=== PATIENT | female | born 1960 | race Hispanic/Latino ===

== ENCOUNTER → 2020-05-18 | Emergency (ER) | payer OTHER ==
[~2020-05-18] VITALS: Ht 157.5 cm; Wt 73.5 kg
[~2020-05-18] MED LIST: KEFLEX500 MG PO; LOSARTAN POTASS25 MG PO; NAPROSYN500 MG PO; ZOFRAN4 MG PO
== END ==
LOC: ED 17:51
DX: N39.0 Urinary tract infection, site not specified (principal); I10 Essential (primary) hypertension; Z79.899 Other long term (current) drug therapy
CPT/HCPCS: 81001; 99284

== ENCOUNTER 2020-11-18 20:40 | Emergency (ER) | payer OTHER ==
[~2020-11-18] VITALS: Ht 157.5 cm; Wt 79.8 kg
[2020-11-18] MEDS ORDERED: OMEPRAZOLE20 MG PO (21:23)
[2020-11-18] MEDS ORDERED: CYCLOBENZAPRINE10 MG PO (22:46)
--- NOTE | 2020-11-20 15:13 | EKG ---
[facility] [address] [place], [place] [address] Signed Normal sinus rhythm Low voltage QRS Borderline ECG No previous ECGs available Confirmed by MANAS JONES DO ([id number]) on 11/20/2020 3:13:30 PM Electronically Signed By: MANAS JONES DO 11/20/20 1513 PATIENT NAME: KASEY HERNANDEZ Electrocardiogram DATE OF : 62 PHYSICIAN: MANAS JONES DO REPORT #: [id number] REPORT IS CONFIDENTIAL AND NOT TO BE RELEASED WITHOUT AUTHORIZATION
== END 2020-11-18 22:52 | disposition home or self-care (01) ==
LOC: ED 20:40
DX: M54.41 Lumbago with sciatica, right side (principal); G89.29 Other chronic pain; I10 Essential (primary) hypertension; Z79.899 Other long term (current) drug therapy
CPT/HCPCS: 93005; 93010; 99283-25